=== PATIENT | male | born 1940 | race Asian ===

== ENCOUNTER 2017-06-23 17:55 | Emergency (ER) | payer MEDICARE, MEDICAID ==
[~2017-06-23] VITALS: Ht 165.1 cm; Wt 60.3 kg
[2017-06-23] MEDS ORDERED: NKM (18:29)
[2017-06-23 18:31] VITALS: BP 129/77
--- NOTE | 2017-06-23 18:46 | Emergency Room Report ---
History of Present Illness General Chief Complaint: Pain Source: Patient Present Illness HPI 76-year-old male presenting with right-sided rib pain after a fall one week ago. Patient states that he tripped and fell onto his right side onto a chair. Did not hit his head or lose consciousness. He sustained some bruising to his right ribs. Complains of pain to the area, but a medicine patch on it. No abdominal pain. No nausea or vomiting. Patient tolerating by mouth Allergies: Coded Allergies: No Known Allergies (Unverified , 06/23/17) Patient History Past Medical History: see triage record Past Surgical History: none Pertinent Family History: none Reviewed Nursing Documentation: PMH: Agreed; PSxH: Agreed Nursing Documentation-PMH Past Medical History: No Stated History Review of Systems All Other Systems: negative except mentioned in HPI Physical Exam Vital Signs Date Time Temp Pulse Resp B/P (MAP) Pulse Ox O2 Delivery O2 Flow Rate FiO2 06/23/17 18:23 98.0 75 16 129/77 97 Room Air 98.1 Sp02 EP Interpretation: reviewed, normal General Appearance: alert, GCS 15, non-toxic, mild distress Head: normocephalic, atraumatic Eyes: bilateral eye normal inspection, bilateral eye PERRL, bilateral eye EOMI ENT: normal ENT inspection, normal pharynx, normal voice, moist mucus membranes Neck: normal inspection, full range of motion, supple Respiratory: normal inspection, lungs clear, normal breath sounds, no respiratory distress, no retraction, no wheezing, speaking full sentences, chest symmetrical Cardiovascular #1: normal inspection, regular rate, rhythm, normal capillary refill Cardiovascular #2: 2+ radial (R), 2+ radial (L) Gastrointestinal: normal inspection, non tender, soft, non-distended, no guarding Musculoskeletal: other - R rib tenderness, ecchymosis, no bony deformity palpable Neurologic: normal inspection, alert, oriented x3, responsive, motor strength/ tone normal, sensory intact, normal gait, speech normal Psychiatric: normal inspection, judgement/insight normal, memory normal Skin: normal inspection, normal color, no rash, warm/dry, well hydrated, normal turgor Medical Decision Making Diagnostic Impression: Primary Impression: Contusion of rib on right side ER Course 76-year-old male with right rib pain, fell one week ago Not in any respiratory distress DDX: Rib contusion versus fracture Plan: X-ray ER course: Patient has remained stable during ED stay. Ambulatory not in resp distress not in pain Disposition: Patient is to be discharged to home. Patient is instructed to follow up with their primary care doctor within 5 days. Please note that this Emergency Department Report was dictated using [employer] software, occasionally this can lead to erroneous entry secondary to interpretation by the dictation equipment Right rib X-ray CXR: Ordered: Yes 3 view Indication: Chest pain EP interpretation: Yes Interpretation no fracture Impression no fracture Electronically signed by Lenny Celis MD Last Vital Signs Date Time Temp Pulse Resp B/P (MAP) Pulse Ox O2 Delivery O2 Flow Rate FiO2 06/23/17 18:31 16 129/77 97 Room Air 06/23/17 18:23 98.0 75 98.1 Disposition: HOME, SELF-CARE Condition: Improved Scripts Acetaminophen* (ACETAMINOPHEN EXTRA STRENGTH*) 500 Mg Tablet 500 MG ORAL Q8H PRN for Fever/Headache/Mild Pain, #30 TAB Prov: Lenny Celis M.D. 06/23/17 Lenny Celis M.D. Jun 23, 2017 18:46
[2017-06-23] MEDS ORDERED: ACETAMINOPHEN500 M3 ORAL (19:05)
[2017-06-23 19:29] VITALS: BP 122/74
[2017-06-23 19:33] VITALS: BP 122/74
--- NOTE | 2017-06-24 09:56 | Diagnostic Imaging Report ---
Indication: Right-sided chest pain. Trauma. Comparison: None Findings: 4 views of the right chest performed on the rib series. Several of the views are overexposed. There is no obvious fracture. There is a calcified granuloma at the right lung base noted. IMPRESSION: No obvious acute injury
== END 2017-06-23 20:01 | disposition home or self-care (01) ==
LOC: EMR 20:01
DX: S20.211A Contusion of right front wall of thorax, initial encounter (principal); W01.190A Fall on same level from slipping, tripping and stumbling with subsequent striking against furniture, initial encounter; Y93.9 Activity, unspecified; Y92.9 Unspecified place or not applicable
CPT/HCPCS: 99283

== ENCOUNTER 2018-06-16 09:58 | Emergency (ER) | payer MEDICARE, OTHER ==
[~2018-06-16] VITALS: Ht 165.1 cm; Wt 56.2 kg
[~2018-06-16 09:58] MED LIST: ACETAMINOPHEN500 M3 ORAL; NKM
[2018-06-16 10:09] VITALS: BP 124/75
--- NOTE | 2018-06-16 10:27 | Emergency Room Report ---
History of Present Illness General Chief Complaint: General Complaint Source: Patient Present Illness HPI Patient is a 77-year-old male brought in by self after increased shortness of breath worse at night. Patient was noted to have multiple episodes over the past 1 month where he became increased short of breath after going to sleep. He reports having previous blood tests which were normal. He denies prior cardiac condition. He states he was running to catch a bus approximately 1 month ago and since then he is felt increased palpitations which wake him from sleep. He reports having some subjective leg pain and swelling. Patient denies any fever or weight loss. He denies any prior cardiac history.Patient states is not a smoker. Allergies: Coded Allergies: No Known Allergies (Unverified , 06/23/17) Patient History Past Medical History: see triage record Reviewed Nursing Documentation: PMH: Agreed; PSxH: Agreed Nursing Documentation-PMH Past Medical History: No Stated History Physical Exam Vital Signs Date Time Temp Pulse Resp B/P (MAP) Pulse Ox O2 Delivery O2 Flow Rate FiO2 06/16/18 10:04 98.1 76 19 124/75 98 Room Air Sp02 EP Interpretation: reviewed, normal General Appearance: normal inspection, well appearing, no apparent distress, alert, GCS 15 Head: atraumatic ENT: normal ENT inspection, hearing grossly normal, normal voice Neck: normal inspection, full range of motion, supple, no bony tend Respiratory: normal inspection, lungs clear, normal breath sounds, no respiratory distress, no retraction, no wheezing Cardiovascular #1: regular rate, rhythm, no edema Gastrointestinal: normal inspection, normal bowel sounds, non tender, soft, no guarding, no hernia Genitourinary: no CVA tenderness Musculoskeletal: normal inspection, back normal, normal range of motion Neurologic: normal inspection, alert, oriented x3, responsive, infant lead teacher III-XII nml as tested, speech normal Psychiatric: normal inspection, judgement/insight normal, mood/affect normal Skin: normal inspection, normal color, no rash Medical Decision Making Diagnostic Impression: Primary Impression: Scarring of lung ER Course Patient presented for intermittent dyspnea. Differential diagnosis include was not limited to panic attacks, cardiac arrhythmia, congestive heart failure, among others. Because of complexity of patient's case laboratory testing and imaging studies were ordered. Laboratory studies were unremarkable. A chest x- ray showed apical scarring of the lung which is unchanged from prior exam with normal cardiac size. EKG interpreted by me showed normal sinus rhythm with a rate of [address] or T wave changes. The patient was advised to take aspirin daily. He was advised to return if he began having any increased symptoms. He is advised to follow-up with cardiology for outpatient evaluation. Patient states he has had a negative treadmill approximately 2 months ago. Labs Test 06/16/18 10:25 White Blood Count 3.7 K/UL (4.8-10.8) Red Blood Count 4.05 M/UL (4.70-6.10) Hemoglobin 13.8 G/DL (14.2-18.0) Hematocrit 41.0 % (42.0-52.0) Mean Corpuscular Volume 101 FL (80-99) Mean Corpuscular Hemoglobin 34.0 PG (27.0-31.0) Mean Corpuscular Hemoglobin Concent 33.6 G/DL (32.0-36.0) Red Cell Distribution Width 12.2 % (11.6-14.8) Platelet Count 160 K/UL (150-450) Mean Platelet Volume 6.6 FL (6.5-10.1) Neutrophils (%) (Auto) 68.9 % (45.0-75.0) Lymphocytes (%) (Auto) 20.7 % (20.0-45.0) Monocytes (%) (Auto) 7.9 % (1.0-10.0) Eosinophils (%) (Auto) 2.0 % (0.0-3.0) Basophils (%) (Auto) 0.5 % (0.0-2.0) D-Dimer 0.23 mg/L FEU (0.00-0.49) Sodium Level 142 MMOL/L (136-145) Potassium Level 3.7 MMOL/L (3.5-5.1) Chloride Level 102 MMOL/L (98-107) Carbon Dioxide Level 33 MMOL/L (21-32) Anion Gap 7 mmol/L (5-15) Blood Urea Nitrogen 16 mg/dL (7-18) Creatinine 0.9 MG/DL (0.55-1.30) Estimat Glomerular Filtration Rate mL/min (>60) Glucose Level 104 MG/DL (74-106) Calcium Level 9.1 MG/DL (8.5-10.1) Total Bilirubin 0.7 MG/DL (0.2-1.0) Aspartate Amino Transf (AST/SGOT) 24 U/L (15-37) Alanine Aminotransferase (ALT/SGPT) 18 U/L (12-78) Alkaline Phosphatase 72 U/L (46-116) Total Creatine Kinase 87 U/L (26-308) Creatine Kinase MB 0.6 NG/ML (0.0-3.6) Creatine Kinase MB Relative Index 0.6 Troponin I 0.000 ng/mL (0.000-0.056) Pro-B-Type Natriuretic Peptide 119 pg/mL (0-125) Total Protein 7.8 G/DL (6.4-8.2) Albumin 4.0 G/DL (3.4-5.0) Globulin 3.8 g/dL Albumin/Globulin Ratio 1.1 (1.0-2.7) Last Vital Signs Date Time Temp Pulse Resp B/P (MAP) Pulse Ox O2 Delivery O2 Flow Rate FiO2 06/16/18 10:09 98.1 76 19 124/75 98 Room Air Status: improved Disposition: HOME, SELF-CARE Condition: Stable Maxx Gallegos MD Jun 16, 2018 10:27
--- NOTE | 2018-06-16 10:33 | NUR ---
ED Nurse Note: pt relates he was running to [employer] the bus and since then has felt palpiations in middle of night, waking him up. he also states some edema to bilat ankles since incident. pt is a/ox3 denies dyspnea denies n/v does relates that his left arm and bilat legs feel numbness. strong equal grasps
--- NOTE | 2018-06-16 10:41 | NUR ---
ED Nurse Note: pt moved to monitored bed for cardiac monitoring
[2018-06-16 10:54] LABS: BASOPHILS % (AUTO) 0.5 % (0.0-2.0); HEMOGLOBIN 13.8 G/DL (14.2-18.0); LYMPHOCYTES % (AUTO) 20.7 % (20.0-45.0); MEAN CORPUSCULAR VOLUME 101 FL (80-99); MONOCYTES % (AUTO) 7.9 % (1.0-10.0); NEUTROPHILS % (AUTO) 68.9 % (45.0-75.0); PLATELET COUNT 160 K/UL (150-450); RED BLOOD COUNT 4.05 M/UL (4.70-6.10); RED CELL DISTRIBUTION WIDTH 12.2 % (11.6-14.8); WHITE BLOOD COUNT 3.7 K/UL (4.8-10.8)
[2018-06-16 11:01] LABS: ANION GAP 7 mmol/L (5-15); BLOOD UREA NITROGEN 16 mg/dL (7-18); CALCIUM 9.1 MG/DL (8.5-10.1); CARBON DIOXIDE 33 MMOL/L (21-32); CHLORIDE 102 MMOL/L (98-107); CREATININE 0.9 MG/DL (0.55-1.30); POTASSIUM 3.7 MMOL/L (3.5-5.1); SODIUM 142 MMOL/L (136-145)
--- NOTE | 2018-06-16 11:06 | Diagnostic Imaging Report ---
Indication: Reason For Exam: CP Technique: One view of the chest Comparison: For 11/04/2017 Findings: Lungs and pleural spaces are clear. Heart size is normal. Pleural and parenchymal scarring is again demonstrated in both lung apices. There is no significant interim change Impression: No acute process
[2018-06-16 11:15] LABS: ALANINE AMINOTRANSFERASE 18 U/L (12-78); ALBUMIN/GLOBULIN RATIO 1.1 (1.0-2.7); ALKALINE PHOSPHATASE 72 U/L (46-116); ASPARTATE AMINO TRANSFERASE 24 U/L (15-37); BILIRUBIN,TOTAL 0.7 MG/DL (0.2-1.0); CKMB 0.6 NG/ML (0.0-3.6); CREATINE KINASE 87 U/L (26-308)
[2018-06-16 12:25] VITALS: BP 109/53
[2018-06-16 13:30] VITALS: BP 114/63
--- NOTE | 2018-06-16 13:31 | NUR ---
ER DISCHARGE NOTE: Patient is cleared to be discharged per ERMD, pt is aox4, on room air, with stable vital signs. pt was given dc instructions, pt was able to verbalize understanding, pt id band and iv site removed without complications. pt is able to ambulate with steady gait. pt took all belongings.
--- NOTE | 2018-06-18 07:50 | Cardiology Report ---
APPROVED REPORT EKG Measurement Heart [id number] Normal sinus rhythm Normal ECG
== END 2018-06-16 13:31 | disposition home or self-care (01) ==
LOC: EMR 11:00
DX: J98.4 Other disorders of lung (principal)
CPT/HCPCS: 36415; 71045; 80053; 82550; 82553; 83880; 84484; 85025; 85379; 93005; 99283